=== PATIENT | female | born 1990 ===

== ENCOUNTER 2017-03-18 08:40 | Inpatient (IN) | payer MEDICAID ==
[~2017-03-18] VITALS: Ht 160 cm; Wt 73.9 kg
[2017-03-18] MEDS ORDERED: WITCH HAZEL-GLYCERIN PAD TOP ONE (09:05)
[2017-03-18] MEDS ORDERED: DERMOPLAST 60ML BOTTLE TOP ONE (09:05)
[2017-03-18] MEDS ORDERED: PHISODERM TOP SOLN 240ML BTL TOP ONE (09:05)
[2017-03-18] MEDS ORDERED: LACT. RINGERS/OXYTOCIN 20UNITS 1,000 ML IV SCH (09:05)
[2017-03-18] MEDS ORDERED: LACT. RINGERS/OXYTOCIN 20UNITS 1,000 ML IV ONE (09:05)
[2017-03-18] MEDS ORDERED: LACTATED RINGER'S 1,000 ML IV SCH (09:05)
[2017-03-18] MEDS ORDERED: PENICILLIN G POT 5MIL/D5 50ML 50 ML IV ONE ×2 (09:08→09:15)
[2017-03-18] MEDS ORDERED: WITCH HAZEL-GLYCERIN PAD TOP PRN (09:15)
[2017-03-18] MEDS ORDERED: DERMOPLAST 60ML BOTTLE TOP PRN (09:15)
[2017-03-18] MEDS ORDERED: LIDOCAINE 1% HCL (LOCAL ANESTH.) INJ 20ML MDV IJ ONE (09:15)
[2017-03-18] MEDS ORDERED: PHISODERM TOP SOLN 240ML BTL TOP PRN (09:15)
[2017-03-18] MEDS ORDERED: LIDOCAINE 2%HCL (LOCAL ANESTH.) INJ 20ML MDV ONE (09:20)
[2017-03-18 09:49] LABS: Eosinophils # (auto) 0 uL; Eosinophils % (auto) 0.2 % (0.0-7.0); Hematocrit 28.3 % (36.0-46.0); Lymphocytes # (auto) 3.3 uL; Monocytes # (auto) 0.8 uL; Neutrophils # (auto) 7.2 uL; White Blood Cell 11.4 10^3/uL (4.4-10.8)
[2017-03-18 09:51] LABS: Basophils # (auto) 0.1 uL; Basophils % (auto) 0.5 % (0.0-2.0); Hemoglobin 8.7 g/dL (12.2-16.2); Mean Corpuscular Hemoglobin 23.5 pg (28.0-32.0); Mean Corpuscular Hgb Conc. 30.9 g/dL (32.0-36.0); Mean Corpuscular Volume 76.2 fL (80.0-100.0); Monocytes % (auto) 7.1 % (0.0-12.0); Neutrophils % (auto) 63.2 % (37.0-80.0); Platelet Count (auto) 281 10^3/uL (140-450); Red Blood Cells 3.71 10^6/uL (4.0-5.20)
[2017-03-18 09:59] LABS: Urine Bacteria FEW /hpf (None Seen); Urine Blood Negative /uL (Negative); Urine Mucus FEW (None Seen); Urine Specific Gravity 1.028 (1.001-1.035); Urine WBC 4 /hpf (0 - 5)
[2017-03-18 10:05] LABS: INR 0.86 (0.9-1.15); Partial Thromboplastin Time 23.5 sec (22.64-33.71); Prothrombin Time 9.4 sec (9.37-12.3)
[2017-03-18 10:10] LABS: Alcohol, Urine < 3.0 mg/dL (0-5); Amphetamine Screen, Urine NEGATIVE (NEGATIVE); Barbiturate Scree,Urine NEGATIVE (NEGATIVE); Benzodiazephine Screen, Urine NEGATIVE (NEGATIVE); Cannabinoid Screen, Urine NEGATIVE (NEGATIVE); Cocaine Screen, Urine NEGATIVE (NEGATIVE); Opiate Scree,Urine NEGATIVE (NEGATIVE); Phencyclidine Screen, Urine NEGATIVE (NEGATIVE)
[2017-03-18 10:18] LABS: Albumin 2.4 g/dL (3.4-5.0); BUN/Creatinine Ratio 23.7; Bilirubin, Total 0.1 mg/dL (0.2-1.0); Calcium 8.4 mg/dL (8.5-10.1); Potassium 3.8 mmol/L (3.5-5.1)
[2017-03-18] MEDS: IBUPROFEN 600 MG TAB PO PRN (11:16)
[2017-03-18 16:25] VITALS: BP 113/63
[2017-03-18 19:30] VITALS: BP 111/74
[2017-03-18 23:40] VITALS: BP 112/71
[2017-03-19] MEDS: IBUPROFEN 600 MG TAB PO PRN ×3 (01:11→17:30)
[2017-03-19 03:35] VITALS: BP 110/57
[2017-03-19] MEDS ORDERED: PREN-125 PO (04:07)
[2017-03-19 06:06] LABS: RPR Non Reactive (Non Reactive)
[2017-03-19 08:00] VITALS: BP 116/75
[2017-03-19 08:06] LABS: Rubella Antibodies, IgG 2.24 index (Immune >0.99)
[2017-03-19] MEDS: DOCUSATE CALCIUM 240 MG CAP PO SCH (09:35)
[2017-03-19 12:09] VITALS: BP 113/73
[2017-03-19 16:03] VITALS: BP 110/69
[2017-03-19 23:20] VITALS: BP 96/67
[2017-03-20 03:30] VITALS: BP 106/66
[2017-03-20] MEDS ORDERED: INFLUENZA QUAD 2017-2018 0.5 ML SYRG IM ONE (06:45)
[2017-03-20] MEDS ORDERED: TETANUS-DIPTH-ACEL PERTUSSIS 0.5ML SYRG IM ONE (06:45)
[2017-03-20 07:39] VITALS: BP 117/67
[2017-03-20] MEDS: DOCUSATE CALCIUM 240 MG CAP PO SCH (10:00)
[2017-03-20 12:15] VITALS: BP 105/62
== END 2017-03-20 12:50 | disposition home or self-care (01) | DRG 560 ==
LOC: OBSVTOIN 08:40 → LDRP 08:40
PROVIDERS: ADMIT Specialist; ATTEND Specialist
PROC: 10E0XZZ Delivery of Products of Conception, External Approach (ICD-10-PCS; principal; 2017-03-18)
DX: O62.3 Precipitate labor (principal); O60.14X0 Preterm labor third trimester with preterm delivery third trimester, not applicable or unspecified; O69.81X0 Labor and delivery complicated by cord around neck, without compression, not applicable or unspecified; Z37.0 Single live birth; Z3A.36 36 weeks gestation of pregnancy; Z23 Encounter for immunization
CPT/HCPCS: 36415; 59025; 59409; 80053; 80307; 81001; 85025; 85610; 85730; 86592; 86703; 86762; 86850; 86900; 86901; 87340; 90472; 90686; 90715; 96365; 96366; J2540; J2590